=== PATIENT | female | born 1975 | race Caucasian/White ===

== ENCOUNTER → 2018-03-23 | Outpatient (CLI) | payer OTHER ==
--- NOTE | 2018-03-24 00:16 | REP ---
Clinical: Left foot pain Technique: AP, lateral, bilateral oblique views left foot . Findings: The osseous structures and joint spaces are intact and normal. There is no evidence for acute fracture or dislocation. Surrounding soft tissues are unremarkable. No subcutaneous emphysema or radiodense foreign body. Impression: Age-appropriate left foot series . No acute fracture or dislocation. Electronically Signed by Martin Rodriguez MD 03/24/2018 12:08 A
== END ==
LOC: M RAD 10:53
PROVIDERS: ATTEND Emergency Medicine
DX: M79.672 Pain in left foot (principal)

== ENCOUNTER → 2019-05-13 | Outpatient (REF) | payer OTHER | LOC: M LAB REF 17:39 | PROVIDERS: ATTEND Physician Assistant | DX: J02.9 Acute pharyngitis, unspecified (principal) ==

== ENCOUNTER 2019-08-03 08:50 | Emergency (ER) | payer OTHER ==
[~2019-08-03] VITALS: Ht 162.6 cm; Wt 91.8 kg
[2019-08-03] MEDS ORDERED: BUPR150T3 (08:59)
[2019-08-03] MEDS ORDERED: OMEP-221 (08:59)
[2019-08-03] MEDS ORDERED: NORT1TAB3 (08:59)
[2019-08-03] MEDS ORDERED: LIDOCAINE 2% MDV 20ML VIAL SC ONE (09:30)
[2019-08-03] MEDS ORDERED: BACTRIM 160MG/800MG DS TAB PO ONE (10:00)
[2019-08-03] MEDS ORDERED: IBUPROFEN 600 MG TAB PO ONE (10:00)
[2019-08-03 10:20] VITALS: BP 150/90
[2019-08-03] MEDS ORDERED: BACT800T5 PO (11:35)
[2019-08-03] MEDS ORDERED: DIFL150T PO (11:35)
[2019-08-03 12:03] LABS: BASO % 0.4 % (0.0-1.0); EOS # 0.1 10^3/uL (0.0-0.5); EOS % 0.8 % (0.0-3.0); HEMATOCRIT 44.5 % (36.0-47.0); HEMOGLOBIN 14.9 g/dl (12.0-15.5); LYMPH # 1.5 10^3/uL (1.5-5.0); LYMPH % 20.4 % (24.0-44.0); MEAN CORPUSCULAR HEMOGLOBIN 29.8 pg (27.0-33.0); MEAN CORPUSCULAR HGB CONC 33.5 g/dl (32.0-36.5); MONO # 0.5 10^3/uL (0.0-0.8); MONO % 6.7 % (0.0-5.0); NEUTROPHILS # 5.2 10^3/uL (1.5-8.5); NEUTROPHILS % 71.6 % (36.0-66.0); PLATELET COUNT, AUTOMATED 266 10^3/uL (150-450); WHITE BLOOD COUNT 7.3 10^3/uL (4.0-10.0)
--- NOTE | 2019-08-03 12:04 | REP ---
LEFT FIRST DIGIT: Four views left first digit performed. There is no evidence of acute fracture, dislocation, or intrinsic bone disease. No radiopaque foreign body is visualized. Electronically Signed by Rey Cornejo MD 08/03/2019 12:58 P
[2019-08-04] MEDS ORDERED: ULTR50TA8 PO (15:22)
--- NOTE | 2019-08-10 12:03 | CR ---
DATE OF CONSULTATION: 08/03/2019 ATTENDING PHYSICIAN: Dr. Terrance Rico REASON FOR CONSULTATION: Left thumb infection. PAST MEDICAL HISTORY: Gastroesophageal reflux disease. PAST SURGICAL HISTORY: Includes: 1. Oophorectomy. 2. Tonsillectomy. 3. LASIK. MEDICATIONS: Omeprazole 40 mg one by mouth daily and bupropion. ALLERGIES: DOXYCYCLINE and ERYTHROMYCIN. HISTORY: The patient reports that on Wednesday she was opening a cardboard box, when the flap of cardboard slipped and cut her underneath the nail of the left thumb. She continued to go about her day but noticed over the next few days increasing redness and swelling over the thumb. She reports that she was able to express a little serosanguineous fluid from the side of the thumb that the cardboard had gone under, and her pain increased to the level that caused her to come into the emergency room (ER) with difficulty with motion and inability to even lightly touch the thumb. SOCIAL HISTORY: The patient denies tobacco or alcohol use. 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 FAMILY HISTORY: Noncontributory. REVIEW OF SYSTEMS: Denies fever, chills, chest pain, shortness of breath, or other systemic symptoms. PHYSICAL EXAMINATION: Vital signs: Temperature 98.1, pulse 88, respirations 17, blood pressure 150/90, pulse oximetry 99 on room air. She is normocephalic, atraumatic. She is has nonlabored breathing. Examination of the left thumb reveals some swelling over the pulp of the thumb. There is a small subungual hematoma under the radial aspect. There is no obvious area of fluctuance or drainable fluid collection. She has intact motion at the interphalangeal (IP) joint of the thumb as well as the metacarpophalangeal (MCP) and at the wrist. She does have intact sensation. It is slightly diminished as she had a digital block for an attempt at releasing some of the skin and any finding any sort of subungual fluid collection by the emergency room provider. She has brisk capillary refill in the thumb. There is no streaking. There is some erythema and swelling over the pulp of the thumb. IMPRESSION: Left cellulitis/felon. At this point, there is no indication for any incision and debridement. There does not appear to be any drainable fluid collection. I would like to send the patient home on oral antibiotics, an anti-inflammatory, and something for pain control, though will also have them provide her with a splint. She will followup in our office on Wednesday to evaluate for efficacy of oral antibiotic treatment. She understands and agrees with the plan. Red flag symptoms were discussed. If she develops any of these, she will return to the emergency department.
== END 2019-08-03 11:54 | disposition home or self-care (01) ==
LOC: M ED 08:50
DX: L03.012 Cellulitis of left finger (principal); L02.512 Cutaneous abscess of left hand; K21.9 Gastro-esophageal reflux disease without esophagitis; Z88.1 Allergy status to other antibiotic agents; Z79.899 Other long term (current) drug therapy; Z79.3 Long term (current) use of hormonal contraceptives

== ENCOUNTER → 2020-02-28 | Outpatient (CLI) | payer SELFPAY ==
[~2020-02-28] MED LIST: BACT800T5 PO; BUPR150T3; DIFL150T PO; NORT1TAB3; OMEP-221; ULTR50TA8 PO
== END ==
LOC: M LABSMTC 12:40
PROVIDERS: ATTEND Pediatrics
DX: Z11.59 Encounter for screening for other viral diseases (principal)

== ENCOUNTER → 2020-07-02 | Outpatient (CLI) | payer OTHER ==
[~2020-07-02] MED LIST changes: +BUPR150T12; -BUPR150T3
--- NOTE | 2020-07-03 02:20 | REP ---
INDICATION: SPRAIN COMPARISON: None. TECHNIQUE: AP, lateral, bilateral oblique views. FINDINGS: No acute fracture or dislocation. Skeletal structures and joint spaces are intact and normal. Ankle mortise appears stable. No subcutaneous emphysema or radiodense foreign body. IMPRESSION: Normal age-appropriate left ankle radiograph series. <Electronically signed by Martin Rodriguez > 07/03/20 0218
--- NOTE | 2020-07-03 02:20 | REP ---
INDICATION: SPRAIN COMPARISON: None. TECHNIQUE: AP, lateral, bilateral oblique views left foot. FINDINGS: The osseous structures and joint spaces are intact and normal. There is no evidence for acute fracture or dislocation. Surrounding soft tissues are unremarkable. No subcutaneous emphysema or radiodense foreign body. IMPRESSION: Age-appropriate left foot series. No acute fracture or dislocation. <Electronically signed by Martin Rodriguez > 07/03/20 021
== END ==
LOC: M WUC 11:49
PROVIDERS: ATTEND Physician Assistant
DX: S93.602A Unspecified sprain of left foot, initial encounter (principal); S93.402A Sprain of unspecified ligament of left ankle, initial encounter; X58.XXXA Exposure to other specified factors, initial encounter; Y92.9 Unspecified place or not applicable

== ENCOUNTER → 2020-09-27 | Outpatient (REF) | LOC: M LABSMTC 11:27 | PROVIDERS: ATTEND Pediatrics | DX: Z11.52 Encounter for screening for COVID-19 (principal) ==

== ENCOUNTER → 2020-10-24 | Outpatient (CLI) | payer OTHER ==
--- NOTE | 2020-10-24 14:15 | REP ---
INDICATION: TWISTED ANKLE. COMPARISON: None. TECHNIQUE: Four views FINDINGS: No acute fracture or destructive osseous lesion. The mortise is intact. IMPRESSION: Within normal limits <Electronically signed by Tyrone Godoy > 10/24/20 [id number]
== END ==
LOC: M RAD 13:10
PROVIDERS: ATTEND Physician Assistant Medical
DX: S99.911A Unspecified injury of right ankle, initial encounter (principal); X50.1XXA Overexertion from prolonged static or awkward postures, initial encounter; Y92.9 Unspecified place or not applicable; Y93.9 Activity, unspecified; Y99.9 Unspecified external cause status

== ENCOUNTER 2021-12-14 13:09 | Emergency (ER) | payer OTHER ==
[~2021-12-14] VITALS: Ht 162.6 cm; Wt 83.2 kg
[~2021-12-14 13:09] MED LIST changes: -OMEP-221; +OMEP40CA5
[2021-12-14] MEDS ORDERED: NS 500 ML IV ONE (13:30)
[2021-12-14] MEDS ORDERED: fentaNYL 100 MCG/2 ML INJECTION IV PRN (13:30)
[2021-12-14] MEDS ORDERED: ONDANSETRON 4MG 2ML VIAL IV ONE ×2 (13:30→15:40)
[2021-12-14 14:39] LABS: BASO % 0.4 % (0.0-1.0); EOS # 0.1 10^3/uL (0.0-0.5); EOS % 0.7 % (0.0-3.0); HEMATOCRIT 42.2 % (36.0-47.0); HEMOGLOBIN 14.1 g/dl (12.0-15.5); LYMPH # 1.5 10^3/uL (1.5-5.0); LYMPH % 17.8 % (24.0-44.0); MEAN CORPUSCULAR HGB CONC 33.4 g/dl (32.0-36.5); MEAN CORPUSCULAR VOLUME 86.8 fl (80.0-96.0); MONO # 0.6 10^3/uL (0.0-0.8); MONO % 7.5 % (2.0-8.0); NEUTROPHILS # 6.2 10^3/uL (1.5-8.5); NEUTROPHILS % 73.4 % (36.0-66.0); PLATELET COUNT, AUTOMATED 254 10^3/uL (150-450); RED BLOOD COUNT 4.86 10^6/uL (4.00-5.40); WHITE BLOOD COUNT 8.5 10^3/uL (4.0-10.0)
[2021-12-14] MEDS: fentaNYL 100 MCG/2 ML INJECTION IV PRN ×2 (14:40→15:17)
[2021-12-14] MEDS ORDERED: KETOROLAC 30 MG/ML 1ML VIAL IV ONE (14:40)
[2021-12-14 14:41] LABS: CK-MB VALUE MASS < 1.0 NG/ML (<3.6); CPK CREATINE PHOSPHOKINASE 181 U/L (26-192); MB/CK RELATIVE INDEX 0.55 (< OR =4)
[2021-12-14 15:24] LABS: ALBUMIN 3.6 GM/DL (3.2-5.2); BILIRUBIN,DIRECT 0.3 MG/DL (0.0-0.2); FREE T4 1.12 NG/DL (0.76-1.46); THYROID STIMULATING HORMONE 2.25 uIU/ML (0.358-3.740); TOTAL PROTEIN 7.3 GM/DL (6.4-8.2)
[2021-12-14 15:46] LABS: CK-MB VALUE MASS < 1.0 NG/ML (<3.6); CPK CREATINE PHOSPHOKINASE 119 U/L (26-192); MB/CK RELATIVE INDEX 0.84 (< OR =4)
[2021-12-14] MEDS ORDERED: PERC5TAB12 PO (16:44)
[2021-12-14] MEDS ORDERED: KETO10TAB PO (16:44)
[2021-12-14] MEDS ORDERED: ONDA4TAB6 PO (17:00)
[2021-12-14 17:03] VITALS: BP 156/68
== END 2021-12-14 18:14 | disposition home or self-care (01) ==
LOC: M ED 13:09
DX: K80.50 Calculus of bile duct without cholangitis or cholecystitis without obstruction (principal); I10 Essential (primary) hypertension; Z79.3 Long term (current) use of hormonal contraceptives; Z79.899 Other long term (current) drug therapy; Z88.1 Allergy status to other antibiotic agents; Z88.2 Allergy status to sulfonamides
CPT/HCPCS: 71045; 76705; 80047; 80076; 82550; 82553; 83690; 84439; 84443; 84484; 85025; 93005; 93041; 94760; 96361; 96374; 96375; 96376; 99284; J1885; J2405; J3010

== ENCOUNTER → 2022-02-18 | Outpatient (REF) | payer OTHER ==
[~2022-02-18] MED LIST changes: +KETO10TAB PO; +ONDA4TAB6 PO; +PERC5TAB12 PO
== END ==
LOC: M WUC 09:22
PROVIDERS: ATTEND Physician Assistant
DX: J06.9 Acute upper respiratory infection, unspecified (principal)

== ENCOUNTER 2022-03-13 06:13 | Day surgery (SDC) | payer OTHER ==
[~2022-03-13] VITALS: Ht 162.6 cm; Wt 86.1 kg
[~2022-03-13 06:13] MED LIST changes: -BUPR150T12; +BUPR150T12 PO; +MULT-90 PO; -OMEP40CA5; +OMEP40CA5 PO; +VITA100093 PO
[2022-03-13] MEDS ORDERED: LR 1,000 ML IV SCH ×2 (06:40→08:35)
[2022-03-13] MEDS ORDERED: BUPIVACAINE/EPIN 0.25% 30ML VIAL As Ordered ONE (07:11)
[2022-03-13] MEDS ORDERED: ONDA4TAB6 PO (07:31)
[2022-03-13] MEDS ORDERED: MIDAZOLAM INJ 2MG/2ML VIAL (J2250 PER 1MG) As Ordered ONE (07:49)
[2022-03-13] MEDS ORDERED: ROCURONIUM BROMIDE 50MG/5ML VIAL As Ordered ONE ×2 (07:49→08:01)
[2022-03-13] MEDS ORDERED: fentaNYL 250 MCG/5 ML INJECTION As Ordered ONE (07:49)
[2022-03-13] MEDS ORDERED: SUGAMMADEX SODIUM 500 MG/5 ML VIAL (BRIDION) As Ordered ONE (07:49)
[2022-03-13] MEDS ORDERED: ONDANSETRON 4MG 2ML VIAL As Ordered ONE (07:49)
[2022-03-13] MEDS ORDERED: LIDOCAINE 2% 100MG/5ML SDV (FOR ANES.) As Ordered ONE ×2 (07:49→08:01)
[2022-03-13] MEDS ORDERED: propofoL 200 MG/20 ML VIAL As Ordered ONE ×2 (07:49→08:01)
[2022-03-13] MEDS ORDERED: KETOROLAC 60MG 2ML VIAL As Ordered ONE (07:49)
[2022-03-13] MEDS ORDERED: ACETAMINOPHEN 1000MG 100ML IV BAG As Ordered ONE (07:53)
[2022-03-13] MEDS ORDERED: ONDANSETRON 4MG 2ML VIAL IV PRN (08:35)
[2022-03-13] MEDS ORDERED: fentaNYL 100 MCG/2 ML INJECTION IV PRN (08:35)
[2022-03-13] MEDS ORDERED: METOCLOPRAMIDE INJ 10MG/2ML VIAL IV PRN (08:35)
[2022-03-13] MEDS ORDERED: oxyCODONE 5MG TAB PO PRN (08:35)
[2022-03-13] MEDS ORDERED: HYDROMORPHONE HCL 0.5 MG/ 0.5 ML SYRINGE (J1170 PER 1) IV PRN (08:35)
[2022-03-13] MEDS ORDERED: PROMETHAZINE 25MG/ML 1ML VIAL IV PRN (09:10)
[2022-03-13] MEDS ORDERED: NORCO, ANEXSIA 5/325MG TABLET (HYDROcodone/ACETAMINOPHEN) PO PRN (09:45)
[2022-03-13 11:30] VITALS: BP 133/72
== END 2022-03-13 11:49 | disposition home or self-care (01) ==
LOC: M SDC 06:13
PROVIDERS: ATTEND Surgery
DX: K80.20 Calculus of gallbladder without cholecystitis without obstruction (principal); K21.9 Gastro-esophageal reflux disease without esophagitis; F41.9 Anxiety disorder, unspecified; Z79.899 Other long term (current) drug therapy; Z88.0 Allergy status to penicillin; Z88.1 Allergy status to other antibiotic agents; Z88.2 Allergy status to sulfonamides
CPT/HCPCS: 47562; 81025; 88304; J0131; J1100; J1170; J1885; J2250; J2405; J2550; J2765; J3010; S2900

== ENCOUNTER → 2022-06-24 | Outpatient (REF) | payer OTHER | LOC: M LAB REF 09:29 | PROVIDERS: ATTEND Nurse Practitioner Family | DX: J06.9 Acute upper respiratory infection, unspecified (principal); J02.9 Acute pharyngitis, unspecified ==

== ENCOUNTER → 2022-07-16 | Outpatient (CLI) | payer OTHER | LOC: M PLAIMG 10:59 | PROVIDERS: ATTEND Physician Assistant | DX: S62.025D Nondisplaced fracture of middle third of navicular [scaphoid] bone of left wrist, subsequent encounter for fracture with routine healing (principal); M85.632 Other cyst of bone, left forearm ==

== ENCOUNTER → 2023-06-11 | Outpatient (CLI) | payer OTHER ==
[~2023-06-11] MED LIST changes: +LISI10TA22 PO
== END ==
LOC: M WUC 15:25
PROVIDERS: ATTEND Physician Assistant
DX: M54.6 Pain in thoracic spine (principal); M54.50 Low back pain, unspecified; W01.10XA Fall on same level from slipping, tripping and stumbling with subsequent striking against unspecified object, initial encounter

== ENCOUNTER → 2023-07-02 | Outpatient (CLI) | payer OTHER | LOC: M RAD 17:03 | PROVIDERS: ATTEND Family Medicine | DX: M47.27 Other spondylosis with radiculopathy, lumbosacral region (principal); M62.830 Muscle spasm of back ==

== ENCOUNTER → 2023-08-06 | Outpatient (CLI) | payer OTHER | LOC: M WUC 09:03 | PROVIDERS: ATTEND Physician Assistant | DX: S90.31XA Contusion of right foot, initial encounter (principal); X58.XXXA Exposure to other specified factors, initial encounter; Y92.9 Unspecified place or not applicable ==

== ENCOUNTER → 2024-11-10 | Outpatient (CLI) | payer BC, OTHER, SELFPAY ==
[~2024-11-10] MED LIST changes: +ONDA-282 PO; -ONDA4TAB6 PO
== END ==
LOC: M RAD 06:26
PROVIDERS: ATTEND Family Medicine
DX: Z13.29 Encounter for screening for other suspected endocrine disorder (principal); E04.1 Nontoxic single thyroid nodule